=== PATIENT | female | born 1990 | race Caucasian/White ===

== ENCOUNTER 2023-04-07 12:59 | Emergency (ER) | payer OTHER, SELFPAY ==
[2023-04-07 13:09] VITALS: BP 129/34; PULSE 84; RESP 18; TEMP 36.7; O2SAT 99; BMI 29.6
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
[2023-04-07 13:57] LABS: COVID-19 Test Negative (Negative); IDNOW Serial# 08D9AD1C
[2023-04-07 14:01] LABS: IDNOW Serial# BCCEAD1C
[2023-04-07 14:02] LABS: Influenza A Negative (Negative); Influenza B2 Negative (Negative)
[2023-04-07 16:49] VITALS: BP 130/59; PULSE 79; RESP 18; O2SAT 99
== END 2023-04-07 16:51 | disposition home or self-care (01) ==
PROVIDERS: Physician Assistant; Emergency Provider Student in an Organized Health Care Education/Training Program
DX: R05.9 Cough, unspecified (principal); Z20.822 Contact with and (suspected) exposure to COVID-19; Z20.828 Contact with and (suspected) exposure to other viral communicable diseases
CPT/HCPCS: 87502; 87635; 99283; 99284

== ENCOUNTER 2024-01-10 08:43 | Emergency (ER) | payer SELFPAY ==
[2024-01-10 08:45] VITALS: BP 115/92; PULSE 106; RESP 20; TEMP 37.1; O2SAT 98; BMI 33.1
[2024-01-10 09:17] LABS: IDNOW Serial# 08D9AD1C; Strep A Nucleic Acid Negative (Negative)
[2024-01-10 09:48] LABS: Influenza A PCR NEGATIVE (Negative); Influenza B PCR NEGATIVE (Negative); Resp Syncy Virus RNA Qual PCR NEGATIVE (Negative); SARS COV2 PCR INHOUSE NEGATIVE (Negative)
--- NOTE | 2024-01-10 09:54 | ED.URI ---
HPI - URI/Sore Throat General Chief Complaint: Upper Respiratory Symptoms Stated Complaint: fever, chills Time Seen by Provider: 01/10/24 09:08 History of Present Illness HPI Narrative: Patient complains of body aches chills and fatigue starting yesterday, she denies any other symptom She has no headache no stiff neck no sore throat no runny nose no cough no abdominal pain no nausea vomiting or diarrhea no dysuria no skin rash She is concerned as her son is undergoing treatment for leukemia and does not want a get him sick with anything Related Data Previous Rx's Medication Instructions Recorded loratadine 10 mg tablet (Claritin) 10 mg PO DAILY PRN allergic 04/07/23 symptoms #7 tabs Allergies Allergy/AdvReac Type Severity Reaction Status Date / Time CHOCOLATE Allergy Unknown UNKNOWN Uncoded 01/10/24 08:48 chocolate Allergy Unknown Unknown Uncoded 01/10/24 08:48 PMF Past Medical History Source: nursing notes reviewed Social History Social History Alcohol intake: never Advance Directives: No Advance Directives Information Provided: Yes Physical Exam Vital Signs: Vital Signs: Last Vital Signs Temp 98.7 F 01/10/24 08:45 Pulse 106 H 01/10/24 08:45 Resp 20 01/10/24 08:45 BP 115/92 H 01/10/24 08:45 Pulse Ox 98 01/10/24 08:45 O2 Del Method Room Air 01/10/24 08:45 BMI result Body Mass Index 33.1 General appearance come comfortable no acute distress breathing easily The eyes no redness or discharge The ears no redness of tympanic membrane which is intact, canals normal The pharynx is clear without redness swelling or exudate membranes moist Neck is supple Chest clear to auscultation bilateral Heart no murmur Abdomen soft nontender Extremities full range motion x4 Skin no rash Course Course Course Narrative: COVID flu and strep tests are negative Patient is exam is normal, she is comfortable throughout visit tolerating p.o. breathing easily She is advised she likely has a viral illness and that the best plan would be to wear a mask around her son who is immune compromised Medical Decision Making Lab Data Labs: Lab Results 01/10/24 Range/Units 08:58 Influenza Type A (PCR) NEGATIVE (Negative) Influenza Type B (PCR) NEGATIVE (Negative) RSV RNA Qual (PCR) NEGATIVE (Negative) SARS-CoV-2 RNA (RT-PCR) NEGATIVE (Negative) S. pyogenes GrpA ANTONELLA Negative (Negative) Discharge Plan Discharge Clinical Impression: Viral illness Patient Disposition: Home, Self-Care Additional Instructions: Testing for COVID flu and strep throat were all negative You likely have a viral illness and may be having intermittent fevers with your chills so use Tylenol or Motrin as needed Return to the ER any time any worse condition or any concerns Any illness could be contagious so when you are around her immune compromise son tried to wear a mask, try to wash her hands frequently and white surface is you touch that he might touch Prescriptions: No Action loratadine [Claritin] 10 mg tablet 10 mg PO DAILY PRN (Reason: allergic symptoms) Qty: 7 0RF Stand Alone Forms: Work/School Release
[2024-01-10 10:07] VITALS: BP 115/92; PULSE 106; RESP 20; TEMP 36.6
== END 2024-01-10 10:09 | disposition home or self-care (01) ==
PROVIDERS: Emergency Provider Emergency Medicine Emergency Medical Services
DX: B34.9 Viral infection, unspecified (principal); Z11.52 Encounter for screening for COVID-19; Z20.828 Contact with and (suspected) exposure to other viral communicable diseases
CPT/HCPCS: 0241U; 87651; 99282; 99283